=== PATIENT | female | born 1935 | race Caucasian/White ===

== ENCOUNTER 2016-07-18 21:46 | Inpatient (IN) | payer MEDICARE ==
[~2016-07-18] VITALS: Ht 162.6 cm; Wt 101.0 kg
[~2016-07-18 21:46] MED LIST: ASPIRIN 32325 MG/TAB PO; ATROVENT I0.2 MG/1 M IH; AVAPRO TAB150 MG/TAB PO; BUMEX 1MG TA1 MG/TA1 PO; BUMEX2 MG PO; BYSTOLIC5 MG PO; CARDIZEM CD 24240 MG PO; CARDIZEM LA240 MG PO; DIFLUCAN 100MG100 MG PO; DILANTIN 100MG100 MG PO; EFFEXOR XR75 MG/CAP PO; IPRATROPIUM BROM3 M1 IH; LANOXIN 0.120.125 MG PO; LANOXIN 0.25M0.25 MG PO; MICRO-K 1010 MEQ PO; MILLIPRED DP5 MG PO; MULTAQ400 MG PO; NEB; NEURONTIN100 MG/CAP PO; PEPCID 20MG TAB20 MG PO; PRADAXA 150MG150 MG PO; PREDNISONE10 MG PO; PREDNISONE20 MG PO; PRIL40 PO; PROVENTIL0.09 MG/A1 IH; VENTOLIN0.09 MG IH; ZOCOR 10MG10 MG PO
[2016-07-18 22:19] LABS: BASO # 0.1 (0.0-0.2); BASO % 0.4 % (0.0-2.0); EOS # 0.1 (0.0-0.7); EOS % 0.6 % (0-4.0); GRAN % 80.3 % (42.2-75.2); HEMATOCRIT 40.3 % (37.0-47.0); HEMOGLOBIN 12.4 g/dl (12.5-16.0); LYMPH # 1.4 (1.2-3.4); LYMPH % 8.4 % (20.0-51.0); MEAN CELL VOLUME 103 fl (80.0-100.0); MEAN CORPUSCULAR HEMOGLOBIN 32 pg (27.0-31.0); MEAN CORPUSCULAR HGB CONC 31 g/dl (33.0-37.0); MEAN PLATELET VOLUME 10.7 fl (7.4-10.4); MONO # 1.5 (0.1-0.6); PLATELET COUNT 167 K/mm3 (130-400); RED BLOOD COUNT 3.93 M/mm3 (4.10-5.30); REDCELL DISTRIBUTION WIDTH-CV 15.1 % (11.5-14.5); WHITE BLOOD COUNT 16.2 K/mm3 (4.8-10.8)
[2016-07-18 22:20] LABS: ARTERIAL BLD GAS O2 SATURATION 96.9 % (92-100); ARTERIAL BLD GAS TCO2 CT 40.1; ARTERIAL BLOOD GAS BASE EXCESS 7.5 (-2-2); ARTERIAL BLOOD GAS HCO3 37.5 meq/L (22-26); ARTERIAL BLOOD GAS PHT 7.27 C (7.35-7.45); ARTERIAL BLOOD GAS PO2 102.1 mmHg (80-100); ARTERIAL BLOOD GAS PO2T 102.1 (80-100); ARTERIAL BLOOD GAS pH 7.27 (7.35-7.45)
[2016-07-18 22:21] LABS: ALLEN TEST YES; ALLENS TEST RESULT PASS; ATS? YES
[2016-07-18 22:30] LABS: ALBUMIN 4.4 gm/dL (3.5-5.0); BILIRUBIN,TOTAL 0.8 mg/dL (0.0-1.0); CALCIUM 9.3 mg/dL (8.4-10.2); CREATININE, serum 0.91 mg/dL (0.52-1.25); POTASSIUM 4.7 mmol/L (3.4-5.0); TOTAL PROTEIN 8.1 gm/dL (6.4-8.2)
[2016-07-18 22:45] LABS: INR 1.1 (0.8-3.0); PROTHROMBIN TIME 12.3 SECONDS (9.7-12.8); TROPONIN-I 0.069 ng/mL (0.000-0.034)
[2016-07-19] VITALS (1064 sets, daily range): BP systolic 89–135; BP diastolic 40–78; PULSE 63–83; TEMP 96.4–99.4; O2SAT 90–100
[2016-07-19] MEDS ORDERED: LYRICA 75MG CAP75 MG PO (00:13)
[2016-07-19 00:14] LABS: PH 5 (5-8); SQUAMOUS EPITHELIAL 0-2 /hpf; URINE APPEARANCE Hazy; URINE BACTERIA None Seen /hpf; URINE BILIRUBIN Negative (NEGATIVE); URINE BLOOD Negative (NEGATIVE); URINE COLOR Yellow; URINE GLUCOSE Negative (NEGATIVE); URINE KETONE Negative (NEGATIVE); URINE UROBILINOGEN Negative (NEGATIVE); URINE WBC 0-2 /hpf
[2016-07-19 01:09] LABS: ARTERIAL BLD GAS O2 SATURATION 89.8 % (92-100); ARTERIAL BLD GAS TCO2 CT 38.2; ARTERIAL BLOOD GAS BASE EXCESS 8.7 (-2-2); ARTERIAL BLOOD GAS HCO3 36.3 meq/L (22-26); ARTERIAL BLOOD GAS PHT 7.37 C (7.35-7.45); ARTERIAL BLOOD GAS PO2 55.5 mmHg (80-100); ARTERIAL BLOOD GAS PO2T 55.5 (80-100); ARTERIAL BLOOD GAS pH 7.37 (7.35-7.45); OXYHEMOGLOBIN 89.2 %
[2016-07-19 01:10] LABS: ALLEN TEST YES; ALLENS TEST RESULT PASS; ATS? YES
[2016-07-19] MEDS ORDERED: NYSTATIN POWDER15 GM TOP (01:38)
[2016-07-19 05:25] LABS: ALLEN TEST YES; ALLENS TEST RESULT PASS; ARTERIAL BLD GAS O2 SATURATION 97.4 % (92-100); ARTERIAL BLD GAS TCO2 CT 37.5; ARTERIAL BLOOD GAS BASE EXCESS 11.2 (-2-2); ARTERIAL BLOOD GAS PHT 7.49 C (7.35-7.45); ARTERIAL BLOOD GAS PO2 101.1 mmHg (80-100); ARTERIAL BLOOD GAS PO2T 101.1 (80-100); ARTERIAL BLOOD GAS pH 7.49 (7.35-7.45); ATS? YES; OXYHEMOGLOBIN 96.7 %
[2016-07-20] VITALS (948 sets, daily range): BP systolic 95–127; BP diastolic 44–71; PULSE 62–82; TEMP 96.7–98.4; O2SAT 90–99
[2016-07-20 05:03] LABS: ARTERIAL BLD GAS O2 SATURATION 94.6 % (92-100); ARTERIAL BLD GAS TCO2 CT 33.1; ARTERIAL BLOOD GAS BASE EXCESS 5.7 (-2-2); ARTERIAL BLOOD GAS HCO3 31.5 meq/L (22-26); ARTERIAL BLOOD GAS PO2 78.9 mmHg (80-100)
[2016-07-20 05:04] LABS: ALLEN TEST YES; ALLENS TEST RESULT PASS; ATS? YES
[2016-07-20 05:18] LABS: BASO % 0.3 % (0.0-2.0); EOS % 0.4 % (0-4.0); GRAN # 6.7 (1.4-6.5); GRAN % 87.1 % (42.2-75.2); LYMPH # 0.4 (1.2-3.4); LYMPH % 4.8 % (20.0-51.0); MEAN CELL VOLUME 102 fl (80.0-100.0); MEAN CORPUSCULAR HGB CONC 31 g/dl (33.0-37.0); MEAN PLATELET VOLUME 10.9 fl (7.4-10.4); MONO # 0.5 (0.1-0.6); PLATELET COUNT 110 K/mm3 (130-400); RED BLOOD COUNT 3.15 M/mm3 (4.10-5.30); WHITE BLOOD COUNT 7.7 K/mm3 (4.8-10.8)
[2016-07-20 05:20] LABS: MEAN CORPUSCULAR HEMOGLOBIN 32 pg (27.0-31.0)
[2016-07-20 05:33] LABS: ALBUMIN 3.4 gm/dL (3.5-5.0); BILIRUBIN,TOTAL 0.6 mg/dL (0.0-1.0); CALCIUM 8.5 mg/dL (8.4-10.2); CREATININE, serum 0.96 mg/dL (0.52-1.25); MAGNESIUM 1.8 mg/dL (1.6-2.3); PHOSPHOROUS 3.3 mg/dL (2.5-4.5); TOTAL PROTEIN 6.3 gm/dL (6.4-8.2)
[2016-07-21] VITALS (619 sets, daily range): BP systolic 107–135; BP diastolic 55–82; PULSE 63–70; TEMP 97.3–98.4; O2SAT 81–100
[2016-07-21 04:58] LABS: ARTERIAL BLD GAS O2 SATURATION 92.8 % (92-100); ARTERIAL BLD GAS TCO2 CT 30.4; ARTERIAL BLOOD GAS BASE EXCESS 3.5 (-2-2); ARTERIAL BLOOD GAS HCO3 28.9 meq/L (22-26); ARTERIAL BLOOD GAS PO2 68.7 mmHg (80-100)
[2016-07-21 04:59] LABS: ALLEN TEST YES; ALLENS TEST RESULT PASS; ATS? YES
[2016-07-21 06:43] LABS: BASO % 0.3 % (0.0-2.0); EOS % 0.6 % (0-4.0); GRAN # 6.1 (1.4-6.5); GRAN % 84.3 % (42.2-75.2); LYMPH % 6.4 % (20.0-51.0); MEAN CELL VOLUME 101 fl (80.0-100.0); MEAN CORPUSCULAR HGB CONC 31 g/dl (33.0-37.0); MEAN PLATELET VOLUME 11.5 fl (7.4-10.4); MONO # 0.6 (0.1-0.6); PLATELET COUNT 110 K/mm3 (130-400); RED BLOOD COUNT 3.19 M/mm3 (4.10-5.30); REDCELL DISTRIBUTION WIDTH-CV 15.3 % (11.5-14.5); WHITE BLOOD COUNT 7.2 K/mm3 (4.8-10.8)
[2016-07-21 06:48] LABS: HEMATOCRIT 32.3 % (37.0-47.0); HEMOGLOBIN 10.1 g/dl (12.5-16.0); LYMPH # 0.5 (1.2-3.4); MEAN CORPUSCULAR HEMOGLOBIN 32 pg (27.0-31.0)
[2016-07-21 06:50] LABS: ADJUSTED CALCIUM 9.1 mg/dL (8.4-10.2); ALBUMIN 3.3 gm/dL (3.5-5.0); BILIRUBIN,TOTAL 0.5 mg/dL (0.0-1.0); CALCIUM 8.5 mg/dL (8.4-10.2); CREATININE, serum 0.82 mg/dL (0.52-1.25); MAGNESIUM 2.5 mg/dL (1.6-2.3); PHOSPHOROUS 2.8 mg/dL (2.5-4.5); POTASSIUM 4.2 mmol/L (3.4-5.0); TOTAL PROTEIN 6.2 gm/dL (6.4-8.2)
[2016-07-22] VITALS (829 sets, daily range): BP systolic 112–153; BP diastolic 59–83; PULSE 69–103; TEMP 97.2–98; O2SAT 83–100
[2016-07-22 04:49] LABS: ALLEN TEST YES; ALLENS TEST RESULT PASS; ARTERIAL BLD GAS O2 SATURATION 96.5 % (92-100); ARTERIAL BLD GAS TCO2 CT 32.6; ARTERIAL BLOOD GAS BASE EXCESS 4.3 (-2-2); ARTERIAL BLOOD GAS HCO3 30.9 meq/L (22-26); ARTERIAL BLOOD GAS PHT 7.36 C (7.35-7.45); ARTERIAL BLOOD GAS pH 7.36 (7.35-7.45); ATS? YES
[2016-07-22 05:36] LABS: BASO % 0.2 % (0.0-2.0); EOS % 0.2 % (0-4.0); GRAN # 7.3 (1.4-6.5); GRAN % 86.3 % (42.2-75.2); LYMPH # 0.5 (1.2-3.4); LYMPH % 6.2 % (20.0-51.0); MEAN CELL VOLUME 102 fl (80.0-100.0); MEAN CORPUSCULAR HGB CONC 31 g/dl (33.0-37.0); MEAN PLATELET VOLUME 11.8 fl (7.4-10.4); MONO # 0.5 (0.1-0.6); MONO % 6.3 % (1.7-9.3); PLATELET COUNT 124 K/mm3 (130-400); RED BLOOD COUNT 3.37 M/mm3 (4.10-5.30); REDCELL DISTRIBUTION WIDTH-CV 15.4 % (11.5-14.5); WHITE BLOOD COUNT 8.4 K/mm3 (4.8-10.8)
[2016-07-22 05:53] LABS: ADJUSTED CALCIUM 8.9 mg/dL (8.4-10.2); ALBUMIN 3.3 gm/dL (3.5-5.0); BILIRUBIN,TOTAL 0.4 mg/dL (0.0-1.0); CALCIUM 8.3 mg/dL (8.4-10.2); CREATININE, serum 0.77 mg/dL (0.52-1.25); MAGNESIUM 2.5 mg/dL (1.6-2.3); PHOSPHOROUS 3.2 mg/dL (2.5-4.5); POTASSIUM 4.4 mmol/L (3.4-5.0); TOTAL PROTEIN 6.4 gm/dL (6.4-8.2)
[2016-07-22 06:00] LABS: HEMATOCRIT 34.5 % (37.0-47.0); HEMOGLOBIN 10.8 g/dl (12.5-16.0); MEAN CORPUSCULAR HEMOGLOBIN 32 pg (27.0-31.0)
[2016-07-23] VITALS (656 sets, daily range): BP systolic 112–140; BP diastolic 64–76; PULSE 67–83; TEMP 97–98.6; O2SAT 75–100
[2016-07-23 05:01] LABS: ARTERIAL BLD GAS O2 SATURATION 92.9 % (92-100); ARTERIAL BLD GAS TCO2 CT 34.8; ARTERIAL BLOOD GAS BASE EXCESS 5.9 (-2-2); ARTERIAL BLOOD GAS HCO3 32.9 meq/L (22-26); ARTERIAL BLOOD GAS PHT 7.36 C (7.35-7.45); ARTERIAL BLOOD GAS PO2 69.2 mmHg (80-100); ARTERIAL BLOOD GAS PO2T 69.2 (80-100); ARTERIAL BLOOD GAS pH 7.36 (7.35-7.45); OXYHEMOGLOBIN 92.2 %
[2016-07-23 05:06] LABS: ALLEN TEST YES; ALLENS TEST RESULT PASS; ATS? YES
[2016-07-23 05:54] LABS: BASO % 0.2 % (0.0-2.0); EOS % 0.2 % (0-4.0); GRAN # 9.4 (1.4-6.5); GRAN % 87.1 % (42.2-75.2); LYMPH # 0.5 (1.2-3.4); LYMPH % 4.4 % (20.0-51.0); MEAN CELL VOLUME 101 fl (80.0-100.0); MEAN CORPUSCULAR HGB CONC 31 g/dl (33.0-37.0); MEAN PLATELET VOLUME 11.2 fl (7.4-10.4); MONO # 0.8 (0.1-0.6); MONO % 7.3 % (1.7-9.3); PLATELET COUNT 130 K/mm3 (130-400); RED BLOOD COUNT 3.31 M/mm3 (4.10-5.30); REDCELL DISTRIBUTION WIDTH-CV 15.3 % (11.5-14.5); WHITE BLOOD COUNT 10.8 K/mm3 (4.8-10.8)
[2016-07-23 05:57] LABS: HEMATOCRIT 33.5 % (37.0-47.0); HEMOGLOBIN 10.5 g/dl (12.5-16.0); MEAN CORPUSCULAR HEMOGLOBIN 32 pg (27.0-31.0)
[2016-07-23 06:09] LABS: CALCIUM 8.7 mg/dL (8.4-10.2); CREATININE, serum 0.78 mg/dL (0.52-1.25); POTASSIUM 4.5 mmol/L (3.4-5.0)
[2016-07-24 03:34] VITALS: BP 136/70; PULSE 86; TEMP 96.9
[2016-07-24 07:44] LABS: BASO % 0.3 % (0.0-2.0); EOS % 0.1 % (0-4.0); GRAN # 6.2 (1.4-6.5); GRAN % 87.5 % (42.2-75.2); LYMPH # 0.4 (1.2-3.4); LYMPH % 5.9 % (20.0-51.0); MEAN CELL VOLUME 102 fl (80.0-100.0); MEAN CORPUSCULAR HGB CONC 31 g/dl (33.0-37.0); MEAN PLATELET VOLUME 11.1 fl (7.4-10.4); MONO # 0.4 (0.1-0.6); MONO % 5.2 % (1.7-9.3); PLATELET COUNT 125 K/mm3 (130-400); RED BLOOD COUNT 3.24 M/mm3 (4.10-5.30); REDCELL DISTRIBUTION WIDTH-CV 15.1 % (11.5-14.5); WHITE BLOOD COUNT 7.1 K/mm3 (4.8-10.8)
[2016-07-24 07:48] LABS: HEMATOCRIT 32.9 % (37.0-47.0); HEMOGLOBIN 10.2 g/dl (12.5-16.0); MEAN CORPUSCULAR HEMOGLOBIN 31 pg (27.0-31.0)
[2016-07-24 08:18] LABS: CALCIUM 8.8 mg/dL (8.4-10.2); CREATININE, serum 0.73 mg/dL (0.52-1.25); POTASSIUM 4.1 mmol/L (3.4-5.0)
[2016-07-24 11:39] VITALS: BP 123/62; PULSE 75; TEMP 97.8
[2016-07-24 15:34] VITALS: BP 144/77; PULSE 83; TEMP 98.1
[2016-07-24 21:08] VITALS: BP 149/73; PULSE 81; TEMP 97.3
[2016-07-24 23:45] VITALS: BP 120/50; PULSE 89; TEMP 98.1
[2016-07-25 04:44] VITALS: BP 154/74; PULSE 69; TEMP 98.4
[2016-07-25 05:58] LABS: ARTERIAL BLD GAS O2 SATURATION 94.1 % (92-100); ARTERIAL BLD GAS TCO2 CT 37.4; ARTERIAL BLOOD GAS BASE EXCESS 9.1 (-2-2); ARTERIAL BLOOD GAS HCO3 35.6 meq/L (22-26); ARTERIAL BLOOD GAS PO2 74.5 mmHg (80-100); ARTERIAL BLOOD GAS PO2T 74.5 (80-100); OXYHEMOGLOBIN 93.4 %
[2016-07-25 05:59] LABS: ALLEN TEST YES; ALLENS TEST RESULT PASS; ATS? YES
[2016-07-25 07:44] LABS: BASO % 0.3 % (0.0-2.0); EOS % 0.4 % (0-4.0); GRAN # 6.4 (1.4-6.5); GRAN % 85.8 % (42.2-75.2); LYMPH # 0.5 (1.2-3.4); LYMPH % 6.7 % (20.0-51.0); MEAN CELL VOLUME 99 fl (80.0-100.0); MEAN CORPUSCULAR HGB CONC 32 g/dl (33.0-37.0); MONO # 0.4 (0.1-0.6); MONO % 5.7 % (1.7-9.3); PLATELET COUNT 142 K/mm3 (130-400); RED BLOOD COUNT 3.55 M/mm3 (4.10-5.30); REDCELL DISTRIBUTION WIDTH-CV 14.8 % (11.5-14.5); WHITE BLOOD COUNT 7.4 K/mm3 (4.8-10.8)
[2016-07-25 07:46] LABS: HEMATOCRIT 35.1 % (37.0-47.0); HEMOGLOBIN 11.2 g/dl (12.5-16.0); MEAN CORPUSCULAR HEMOGLOBIN 32 pg (27.0-31.0)
[2016-07-25 07:51] VITALS: BP 162/68; PULSE 77; TEMP 98.2
[2016-07-25 08:04] LABS: CALCIUM 9.3 mg/dL (8.4-10.2); CREATININE, serum 0.79 mg/dL (0.52-1.25)
[2016-07-25 12:07] VITALS: BP 165/77; PULSE 84; TEMP 98.4
[2016-07-25 18:03] VITALS: BP 148/84; PULSE 93; TEMP 98.3
[2016-07-25 20:13] VITALS: BP 150/70; PULSE 84; TEMP 97.4
[2016-07-26 00:25] VITALS: BP 157/79; PULSE 72; TEMP 97.6
[2016-07-26 04:17] VITALS: BP 158/69; PULSE 68; TEMP 97.5
[2016-07-26 07:14] LABS: BASO % 0.3 % (0.0-2.0); EOS # 0.1 (0.0-0.7); EOS % 1.7 % (0-4.0); GRAN # 4.7 (1.4-6.5); GRAN % 71.3 % (42.2-75.2); LYMPH % 15.3 % (20.0-51.0); MEAN CELL VOLUME 99 fl (80.0-100.0); MEAN CORPUSCULAR HGB CONC 31 g/dl (33.0-37.0); MEAN PLATELET VOLUME 10.7 fl (7.4-10.4); MONO # 0.7 (0.1-0.6); MONO % 10.3 % (1.7-9.3); PLATELET COUNT 118 K/mm3 (130-400); RED BLOOD COUNT 3.39 M/mm3 (4.10-5.30); WHITE BLOOD COUNT 6.5 K/mm3 (4.8-10.8)
[2016-07-26 07:27] LABS: HEMATOCRIT 33.7 % (37.0-47.0); HEMOGLOBIN 10.5 g/dl (12.5-16.0); MEAN CORPUSCULAR HEMOGLOBIN 31 pg (27.0-31.0)
[2016-07-26 07:29] LABS: CREATININE, serum 0.82 mg/dL (0.52-1.25); POTASSIUM 3.2 mmol/L (3.4-5.0)
[2016-07-26 07:52] VITALS: BP 137/74; PULSE 57; TEMP 97.6
[2016-07-26] MEDS ORDERED: LEVAQUIN 750MG750 M1 PO (09:02)
[2016-07-26] MEDS ORDERED: ELIQUIS 2.5 PO (09:03)
[2016-07-26] MEDS ORDERED: BUMEX 1MG TA1 MG/TA1 PO (09:21)
[2016-07-26] MEDS ORDERED: PULMICORT R1 MG/2 ML IH (09:22)
[2016-07-26] MEDS ORDERED: PREDNISONE20 MG PO (09:23)
[2016-07-26 11:08] VITALS: BP 146/70; PULSE 64; TEMP 97.3
== END 2016-07-26 15:14 | disposition home health service (06) | DRG 163 ==
LOC: COL.ER 21:46 → ICU 23:18 → MEDICAL 23:18
PROVIDERS: Family Medicine; Internal Medicine; Internal Medicine Pulmonary Disease; Nurse Practitioner Family
PROC: 5A1945Z Respiratory Ventilation, 24-96 Consecutive Hours (ICD-10-PCS; principal; 2016-07-19)
PROC: 0B958ZZ Drainage of Right Middle Lobe Bronchus, Via Natural or Artificial Opening Endoscopic (ICD-10-PCS; 2016-07-19)
PROC: 0B968ZZ Drainage of Right Lower Lobe Bronchus, Via Natural or Artificial Opening Endoscopic (ICD-10-PCS; 2016-07-19)
PROC: 0B988ZZ Drainage of Left Upper Lobe Bronchus, Via Natural or Artificial Opening Endoscopic (ICD-10-PCS; 2016-07-19)
PROC: 0B9B8ZZ Drainage of Left Lower Lobe Bronchus, Via Natural or Artificial Opening Endoscopic (ICD-10-PCS; 2016-07-19)
PROC: 0BH17EZ Insertion of Endotracheal Airway into Trachea, Via Natural or Artificial Opening (ICD-10-PCS; 2016-07-19)
PROC: 0B968ZZ Drainage of Right Lower Lobe Bronchus, Via Natural or Artificial Opening Endoscopic (ICD-10-PCS; 2016-07-20)
PROC: 0B9B8ZZ Drainage of Left Lower Lobe Bronchus, Via Natural or Artificial Opening Endoscopic (ICD-10-PCS; 2016-07-20)
PROC: 0B968ZZ Drainage of Right Lower Lobe Bronchus, Via Natural or Artificial Opening Endoscopic (ICD-10-PCS; 2016-07-21)
PROC: 0B9B8ZZ Drainage of Left Lower Lobe Bronchus, Via Natural or Artificial Opening Endoscopic (ICD-10-PCS; 2016-07-21)
PROC: 0B968ZZ Drainage of Right Lower Lobe Bronchus, Via Natural or Artificial Opening Endoscopic (ICD-10-PCS; 2016-07-22)
PROC: 0B9B8ZZ Drainage of Left Lower Lobe Bronchus, Via Natural or Artificial Opening Endoscopic (ICD-10-PCS; 2016-07-22)
DX: J96.01 Acute respiratory failure with hypoxia (principal); J18.9 Pneumonia, unspecified organism; J44.0 Chronic obstructive pulmonary disease with (acute) lower respiratory infection; J96.02 Acute respiratory failure with hypercapnia; I48.0 Paroxysmal atrial fibrillation; I27.2 Other secondary pulmonary hypertension; E87.6 Hypokalemia; D69.6 Thrombocytopenia, unspecified
CPT/HCPCS: 99223-AI; 99232-AI; 99233-AI; 99239; C1751; J0330; J0696; J1644; J1650; J1940; J1956; J2250; J2270; J2405; J2543; J2704; J2920; J3010; J3370; J3475; J7050; J7120; J7512; Q9967

== ENCOUNTER 2016-08-12 09:54 | Inpatient (IN) | payer MEDICARE ==
[2016-08-12] VITALS (388 sets, daily range): BP systolic 143–148; BP diastolic 76–86; PULSE 85–100; TEMP 97.8–98.2; O2SAT 90–99
[~2016-08-12] VITALS: Ht 162.6 cm; Wt 93.6 kg
[~2016-08-12 09:54] MED LIST changes: +ELIQUIS 2.5 PO; +LEVAQUIN 750MG750 M1 PO; +LYRICA 75MG CAP75 MG PO; +NYSTATIN POWDER15 GM TOP; +PULMICORT R1 MG/2 ML IH
[2016-08-12 10:55] LABS: BASO % 0.3 % (0.0-2.0); EOS # 0.2 (0.0-0.7); EOS % 2.5 % (0-4.0); GRAN # 6.3 (1.4-6.5); GRAN % 82.6 % (42.2-75.2); HEMATOCRIT 42.6 % (37.0-47.0); HEMOGLOBIN 13.6 g/dl (12.5-16.0); LYMPH # 0.6 (1.2-3.4); LYMPH % 8.4 % (20.0-51.0); MEAN CELL VOLUME 98 fl (80.0-100.0); MEAN CORPUSCULAR HEMOGLOBIN 31 pg (27.0-31.0); MEAN CORPUSCULAR HGB CONC 32 g/dl (33.0-37.0); MEAN PLATELET VOLUME 10.4 fl (7.4-10.4); MONO # 0.5 (0.1-0.6); MONO % 5.9 % (1.7-9.3); PLATELET COUNT 141 K/mm3 (130-400); RED BLOOD COUNT 4.34 M/mm3 (4.10-5.30); REDCELL DISTRIBUTION WIDTH-CV 13.3 % (11.5-14.5); WHITE BLOOD COUNT 7.6 K/mm3 (4.8-10.8)
[2016-08-12 11:09] LABS: ADJUSTED CALCIUM 9.4 mg/dL (8.4-10.2); ALBUMIN 4.2 gm/dL (3.5-5.0); BILIRUBIN,TOTAL 0.7 mg/dL (0.0-1.0); CALCIUM 9.6 mg/dL (8.4-10.2); CREATININE, serum 0.76 mg/dL (0.52-1.25); TOTAL PROTEIN 7.7 gm/dL (6.4-8.2)
[2016-08-12 11:19] LABS: TROPONIN-I 0.017 ng/mL (0.000-0.034)
[2016-08-12 11:19] LABS: ARTERIAL BLD GAS O2 SATURATION 92.3 % (92-100); ARTERIAL BLD GAS TCO2 CT 40.3; ARTERIAL BLOOD GAS PHT 7.33 C (7.35-7.45); ARTERIAL BLOOD GAS PO2 68.8 mmHg (80-100); ARTERIAL BLOOD GAS PO2T 68.8 (80-100); ARTERIAL BLOOD GAS pH 7.33 (7.35-7.45); OXYHEMOGLOBIN 91.5 %
[2016-08-12 11:20] LABS: ATS? YES
[2016-08-12 11:20] LABS: INR 1.1 (0.8-3.0); PROTHROMBIN TIME 12.2 SECONDS (9.7-12.8)
[2016-08-12 11:21] LABS: ALLEN TEST YES; ALLENS TEST RESULT PASS
[2016-08-12 14:27] LABS: ARTERIAL BLD GAS O2 SATURATION 94.2 % (92-100); ARTERIAL BLD GAS TCO2 CT 38.5; ARTERIAL BLOOD GAS BASE EXCESS 8.7 (-2-2); ARTERIAL BLOOD GAS HCO3 36.5 meq/L (22-26); ARTERIAL BLOOD GAS PHT 7.37 C (7.35-7.45); ARTERIAL BLOOD GAS PO2 76.6 mmHg (80-100); ARTERIAL BLOOD GAS PO2T 76.6 (80-100); ARTERIAL BLOOD GAS pH 7.37 (7.35-7.45); OXYHEMOGLOBIN 93.3 %
[2016-08-12 14:28] LABS: ATS? YES
[2016-08-12 16:25] LABS: INFLUENZA B NEGATIVE
[2016-08-13] VITALS (328 sets, daily range): BP systolic 135–151; BP diastolic 65–82; PULSE 79–103; TEMP 95.8–98.2; O2SAT 83–99
[2016-08-13 05:26] LABS: BASO % 0.2 % (0.0-2.0); GRAN # 5.6 (1.4-6.5); GRAN % 87.7 % (42.2-75.2); LYMPH # 0.5 (1.2-3.4); LYMPH % 8.4 % (20.0-51.0); MEAN CELL VOLUME 97 fl (80.0-100.0); MEAN CORPUSCULAR HGB CONC 33 g/dl (33.0-37.0); MEAN PLATELET VOLUME 10.3 fl (7.4-10.4); MONO # 0.2 (0.1-0.6); MONO % 3.4 % (1.7-9.3); PLATELET COUNT 132 K/mm3 (130-400); RED BLOOD COUNT 3.75 M/mm3 (4.10-5.30); REDCELL DISTRIBUTION WIDTH-CV 13.3 % (11.5-14.5); WHITE BLOOD COUNT 6.4 K/mm3 (4.8-10.8)
[2016-08-13 05:35] LABS: CALCIUM 9.1 mg/dL (8.4-10.2); CREATININE, serum 0.74 mg/dL (0.52-1.25); MAGNESIUM 1.8 mg/dL (1.6-2.3); PHOSPHOROUS 3.4 mg/dL (2.5-4.5)
[2016-08-13 05:53] LABS: HEMOGLOBIN 11.8 g/dl (12.5-16.0); MEAN CORPUSCULAR HEMOGLOBIN 31 pg (27.0-31.0)
[2016-08-13 05:54] LABS: HEMATOCRIT 36.3 % (37.0-47.0)
[2016-08-13 07:47] LABS: INR 1.2 (0.8-3.0); PROTHROMBIN TIME 13.6 SECONDS (9.7-12.8)
[2016-08-13 13:30] LABS: ARTERIAL BLD GAS O2 SATURATION 94.2 % (92-100); ARTERIAL BLD GAS TCO2 CT 33.7; ARTERIAL BLOOD GAS BASE EXCESS 5.9 (-2-2); ARTERIAL BLOOD GAS HCO3 32.1 meq/L (22-26); OXYHEMOGLOBIN 93.6 %
[2016-08-13 13:31] LABS: ALLEN TEST YES; ALLENS TEST RESULT PASS; ATS? YES
[2016-08-14] VITALS (7 sets, daily range): BP systolic 129–162; BP diastolic 68–86; PULSE 70–110; TEMP 97.4–97.9
[2016-08-15 03:35] VITALS: BP 119/68; PULSE 85; TEMP 97
[2016-08-15 07:21] LABS: ALBUMIN 3.7 gm/dL (3.5-5.0); BILIRUBIN,TOTAL 0.6 mg/dL (0.0-1.0); CALCIUM 8.8 mg/dL (8.4-10.2); CREATININE, serum 0.67 mg/dL (0.52-1.25); POTASSIUM 3.7 mmol/L (3.4-5.0); TOTAL PROTEIN 6.6 gm/dL (6.4-8.2)
[2016-08-15 08:36] VITALS: BP 155/78; PULSE 85; TEMP 97.4
[2016-08-15 10:54] VITALS: BP 151/60; PULSE 103; TEMP 97.6
[2016-08-15 14:32] VITALS: BP 131/57; PULSE 94; TEMP 97.9
[2016-08-15 19:30] VITALS: BP 160/67; PULSE 95; TEMP 97.7
[2016-08-15 23:54] VITALS: BP 124/67; PULSE 93; TEMP 98.2
[2016-08-16 03:25] VITALS: BP 155/70; PULSE 91; TEMP 97.4
[2016-08-16 08:59] VITALS: BP 169/91; PULSE 96; TEMP 97.6
[2016-08-16 12:02] LABS: ADJUSTED CALCIUM 9.3 mg/dL (8.4-10.2); ALBUMIN 4.2 gm/dL (3.5-5.0); BILIRUBIN,TOTAL 0.7 mg/dL (0.0-1.0); CALCIUM 9.5 mg/dL (8.4-10.2); CREATININE, serum 0.69 mg/dL (0.52-1.25); POTASSIUM 3.7 mmol/L (3.4-5.0); TOTAL PROTEIN 7.4 gm/dL (6.4-8.2)
[2016-08-16 12:26] VITALS: BP 163/96; PULSE 109; TEMP 98.1
[2016-08-16] MEDS ORDERED: ELIQUIS 5MG PO (13:54)
[2016-08-16] MEDS ORDERED: CARDIZEM CD 24240 MG PO (13:54)
[2016-08-16] MEDS ORDERED: DALIRESP500 MCG PO (13:55)
[2016-08-16] MEDS ORDERED: BUMEX2 MG PO (13:58)
[2016-08-16] MEDS ORDERED: MONODOX100 PO (14:31)
[2016-08-16] MEDS ORDERED: PREDNISONE20 MG PO (14:31)
== END 2016-08-16 15:53 | disposition home or self-care (01) | DRG 189 ==
LOC: COL.ER 09:54 → IMCU 12:13 → MEDICAL 12:13
PROVIDERS: Emergency Medicine; Family Medicine; Internal Medicine Pulmonary Disease
PROC: 02HV33Z Insertion of Infusion Device into Superior Vena Cava, Percutaneous Approach (ICD-10-PCS; principal; 2016-08-12)
DX: J96.22 Acute and chronic respiratory failure with hypercapnia (principal); J44.1 Chronic obstructive pulmonary disease with (acute) exacerbation; E87.3 Alkalosis; I50.32 Chronic diastolic (congestive) heart failure; J96.21 Acute and chronic respiratory failure with hypoxia; I48.0 Paroxysmal atrial fibrillation; I11.0 Hypertensive heart disease with heart failure; I27.2 Other secondary pulmonary hypertension; Z87.891 Personal history of nicotine dependence
CPT/HCPCS: A9284; C1751; C1894; J0692; J1644; J1940; J1956; J2920; J2930; J7030

== ENCOUNTER → 2016-12-13 | Outpatient (CLI) | payer MEDICARE ==
[~2016-12-13] MED LIST changes: +CORDARONE200 MG/TAB PO; +DALIRESP500 MCG PO; +ELIQUIS 5MG PO; +MONODOX100 PO; +NORCO 325 MG-51 TAB PO
== END ==
LOC: MC.RAD 08:47
DX: Z12.31 Encounter for screening mammogram for malignant neoplasm of breast (principal)

== ENCOUNTER 2017-03-08 06:50 | Inpatient (IN) | payer MEDICARE ==
[2017-03-08] VITALS (692 sets, daily range): BP systolic 93–112; BP diastolic 44–67; PULSE 81–98; TEMP 96.9–97.9; O2SAT 84–100
[~2017-03-08] VITALS: Ht 162.6 cm; Wt 88.4 kg
[~2017-03-08 06:50] MED LIST changes: -CORDARONE200 MG/TAB PO; -NORCO 325 MG-51 TAB PO
[2017-03-08 07:23] LABS: BASO # 0.1 (0.0-0.2); BASO % 0.5 % (0.0-2.0); EOS # 0.1 (0.0-0.7); EOS % 1.3 % (0-4.0); GRAN # 7.9 (1.4-6.5); GRAN % 78.6 % (42.2-75.2); LYMPH # 0.5 (1.2-3.4); LYMPH % 5.4 % (20.0-51.0); MEAN CELL VOLUME 82 fl (80.0-100.0); MEAN CORPUSCULAR HGB CONC 28 g/dl (33.0-37.0); MEAN PLATELET VOLUME 10.5 fl (7.4-10.4); MONO # 1.3 (0.1-0.6); MONO % 13.3 % (1.7-9.3); PLATELET COUNT 324 K/mm3 (130-400); RED BLOOD COUNT 3.13 M/mm3 (4.10-5.30); REDCELL DISTRIBUTION WIDTH-CV 16.1 % (11.5-14.5)
[2017-03-08 07:25] LABS: ARTERIAL BLD GAS O2 SATURATION 95.3 % (92-100); ARTERIAL BLD GAS TCO2 CT 42.2; ARTERIAL BLOOD GAS BASE EXCESS 14.1 (-2-2); ARTERIAL BLOOD GAS HCO3 40.3 meq/L (22-26); ARTERIAL BLOOD GAS PHT 7.42 C (7.35-7.45); ARTERIAL BLOOD GAS PO2 84.9 mmHg (80-100); ARTERIAL BLOOD GAS PO2T 84.9 (80-100); ARTERIAL BLOOD GAS pH 7.42 (7.35-7.45); OXYHEMOGLOBIN 93.1 %
[2017-03-08 07:26] LABS: ALLEN TEST YES; ALLENS TEST RESULT PASS; ATS? YES
[2017-03-08 07:29] LABS: INR 1.6 (0.8-3.0); PROTHROMBIN TIME 17.6 SECONDS (9.7-12.8)
[2017-03-08 07:30] LABS: HEMATOCRIT 25.8 % (37.0-47.0); HEMOGLOBIN 7.3 g/dl (12.5-16.0); MEAN CORPUSCULAR HEMOGLOBIN 23 pg (27.0-31.0)
[2017-03-08 07:31] LABS: PARTIAL THROMBOPLASTIN TIME 26.8 SECONDS (26.0-37.0)
[2017-03-08 07:39] LABS: ADJUSTED CALCIUM 8.8 mg/dL (8.4-10.2); ALBUMIN 3.7 gm/dL (3.5-5.0); BILIRUBIN,TOTAL 1.3 mg/dL (0.0-1.0); C-REACTIVE PROTEIN 5.9 mg/dL (0.0-0.9); CALCIUM 8.6 mg/dL (8.4-10.2); CREATININE, serum 1.13 mg/dL (0.52-1.25); POTASSIUM 4.6 mmol/L (3.4-5.0); TOTAL PROTEIN 7.3 gm/dL (6.4-8.2)
[2017-03-08 07:54] LABS: TROPONIN-I 0.159 ng/mL (0.000-0.034)
[2017-03-08 08:17] LABS: PH 5 (5-8); SQUAMOUS EPITHELIAL None Seen /hpf; URINE APPEARANCE Clear; URINE BACTERIA Rare /hpf; URINE BILIRUBIN Negative (NEGATIVE); URINE BLOOD Negative (NEGATIVE); URINE COLOR Yellow; URINE GLUCOSE Negative (NEGATIVE); URINE KETONE Negative (NEGATIVE); URINE RBC 0-2 /hpf; URINE WBC 0-2 /hpf
[2017-03-08] MEDS ORDERED: DALIRESP500 MCG PO (09:57)
[2017-03-08] MEDS ORDERED: CORDARONE200 MG/TAB PO (09:58)
[2017-03-08] MEDS ORDERED: NORCO 325 MG-51 TAB PO (10:56)
[2017-03-08 15:39] LABS: MEAN CELL VOLUME 83 fl (80.0-100.0); MEAN CORPUSCULAR HGB CONC 30 g/dl (33.0-37.0); MEAN PLATELET VOLUME 9.6 fl (7.4-10.4); PLATELET COUNT 236 K/mm3 (130-400); RED BLOOD COUNT 2.76 M/mm3 (4.10-5.30)
[2017-03-08 15:42] LABS: HEMOGLOBIN 6.9 g/dl (12.5-16.0); MEAN CORPUSCULAR HEMOGLOBIN 25 pg (27.0-31.0)
[2017-03-08 15:48] LABS: CALCIUM 7.3 mg/dL (8.4-10.2); CREATININE, serum 1.02 mg/dL (0.52-1.25); POTASSIUM 3.5 mmol/L (3.4-5.0)
[2017-03-08 16:12] LABS: TROPONIN-I 0.111 ng/mL (0.000-0.034)
[2017-03-09] VITALS (717 sets, daily range): BP systolic 88–117; BP diastolic 37–68; PULSE 81–104; TEMP 96.9–98.6; O2SAT 80–100
[2017-03-09 06:44] LABS: MEAN CELL VOLUME 84 fl (80.0-100.0); MEAN CORPUSCULAR HGB CONC 30 g/dl (33.0-37.0); MEAN PLATELET VOLUME 9.9 fl (7.4-10.4); PLATELET COUNT 248 K/mm3 (130-400); REDCELL DISTRIBUTION WIDTH-CV 15.5 % (11.5-14.5); WHITE BLOOD COUNT 9.3 K/mm3 (4.8-10.8)
[2017-03-09 06:58] LABS: HEMATOCRIT 30.4 % (37.0-47.0); HEMOGLOBIN 9.2 g/dl (12.5-16.0); MEAN CORPUSCULAR HEMOGLOBIN 26 pg (27.0-31.0)
[2017-03-09 07:15] LABS: CREATININE, serum 1.02 mg/dL (0.52-1.25); POTASSIUM 3.6 mmol/L (3.4-5.0)
[2017-03-09 13:43] LABS: CALCIUM 8.1 mg/dL (8.4-10.2); CREATININE, serum 0.98 mg/dL (0.52-1.25); POTASSIUM 3.5 mmol/L (3.4-5.0)
[2017-03-10 03:10] VITALS: BP 107/51; PULSE 102; TEMP 98.2
[2017-03-10 08:24] VITALS: BP 96/52; PULSE 97; TEMP 97.9
[2017-03-10 08:53] LABS: BASO % 0.4 % (0.0-2.0); EOS # 0.2 (0.0-0.7); EOS % 3.4 % (0-4.0); GRAN # 5.5 (1.4-6.5); GRAN % 80.1 % (42.2-75.2); LYMPH # 0.2 (1.2-3.4); LYMPH % 3.2 % (20.0-51.0); MEAN CELL VOLUME 86 fl (80.0-100.0); MEAN CORPUSCULAR HGB CONC 30 g/dl (33.0-37.0); MONO # 0.9 (0.1-0.6); MONO % 12.5 % (1.7-9.3); PLATELET COUNT 215 K/mm3 (130-400); RED BLOOD COUNT 3.44 M/mm3 (4.10-5.30); REDCELL DISTRIBUTION WIDTH-CV 16.3 % (11.5-14.5); WHITE BLOOD COUNT 6.8 K/mm3 (4.8-10.8)
[2017-03-10 09:02] LABS: HEMATOCRIT 29.5 % (37.0-47.0); HEMOGLOBIN 8.7 g/dl (12.5-16.0); MEAN CORPUSCULAR HEMOGLOBIN 25 pg (27.0-31.0)
[2017-03-10 09:10] LABS: ADJUSTED CALCIUM 8.9 mg/dL (8.4-10.2); BILIRUBIN,TOTAL 0.9 mg/dL (0.0-1.0); CALCIUM 8.1 mg/dL (8.4-10.2); CREATININE, serum 0.99 mg/dL (0.52-1.25); POTASSIUM 3.6 mmol/L (3.4-5.0)
[2017-03-10 12:06] LABS: ARTERIAL BLD GAS O2 SATURATION 94.5 % (92-100); ARTERIAL BLD GAS TCO2 CT 43.7; ARTERIAL BLOOD GAS BASE EXCESS 15.4 (-2-2); ARTERIAL BLOOD GAS HCO3 41.8 meq/L (22-26); ARTERIAL BLOOD GAS PHT 7.44 C (7.35-7.45); ARTERIAL BLOOD GAS PO2 73.2 mmHg (80-100); ARTERIAL BLOOD GAS PO2T 73.2 (80-100); ARTERIAL BLOOD GAS pH 7.44 (7.35-7.45); ATS? YES; OXYHEMOGLOBIN 93.4 %
[2017-03-10 12:37] LABS: RETIC % 3.5 % (0.5-3.52)
[2017-03-10 12:41] LABS: LACTATE DEHYDROGENASE 718 U/L (313-618)
[2017-03-10 12:47] LABS: TOTAL IRON BINDING CAPACITY 342 ug/dL (265-497)
[2017-03-10 12:53] VITALS: BP 109/53; PULSE 98; TEMP 97.8
[2017-03-10 12:56] LABS: B-TYPE NATRIURETIC PEPTIDE 3020 pg/mL (0-450)
[2017-03-10 16:00] VITALS: BP 97/50; PULSE 105; TEMP 97.7
[2017-03-10 20:19] VITALS: BP 143/46; PULSE 107; TEMP 98.6
[2017-03-10 22:47] VITALS: BP 118/65; PULSE 95; TEMP 98.6
[2017-03-11] VITALS (7 sets, daily range): BP systolic 98–119; BP diastolic 47–70; PULSE 76–98; TEMP 97.8–98.8
[2017-03-11 07:55] LABS: BASO % 0.4 % (0.0-2.0); EOS # 0.3 (0.0-0.7); EOS % 4.2 % (0-4.0); GRAN # 5.7 (1.4-6.5); GRAN % 81.5 % (42.2-75.2); LYMPH # 0.2 (1.2-3.4); LYMPH % 2.7 % (20.0-51.0); MEAN CELL VOLUME 87 fl (80.0-100.0); MEAN CORPUSCULAR HGB CONC 29 g/dl (33.0-37.0); MEAN PLATELET VOLUME 10.3 fl (7.4-10.4); MONO # 0.8 (0.1-0.6); MONO % 10.8 % (1.7-9.3); PLATELET COUNT 204 K/mm3 (130-400); RED BLOOD COUNT 3.52 M/mm3 (4.10-5.30); REDCELL DISTRIBUTION WIDTH-CV 16.6 % (11.5-14.5); WHITE BLOOD COUNT 6.9 K/mm3 (4.8-10.8)
[2017-03-11 07:57] LABS: HEMATOCRIT 30.6 % (37.0-47.0); HEMOGLOBIN 8.8 g/dl (12.5-16.0); MEAN CORPUSCULAR HEMOGLOBIN 25 pg (27.0-31.0)
[2017-03-11 08:06] LABS: ADJUSTED CALCIUM 9.2 mg/dL (8.4-10.2); ALBUMIN 2.9 gm/dL (3.5-5.0); BILIRUBIN,TOTAL 0.8 mg/dL (0.0-1.0); CALCIUM 8.3 mg/dL (8.4-10.2); CREATININE, serum 1.01 mg/dL (0.52-1.25); MAGNESIUM 2.1 mg/dL (1.6-2.3); POTASSIUM 4.1 mmol/L (3.4-5.0)
[2017-03-12 03:06] VITALS: BP 105/50; PULSE 88; TEMP 97.8
[2017-03-12 05:18] LABS: ARTERIAL BLD GAS O2 SATURATION 93.8 % (92-100); ARTERIAL BLD GAS TCO2 CT 43.2; ARTERIAL BLOOD GAS BASE EXCESS 15.4 (-2-2); ARTERIAL BLOOD GAS HCO3 41.4 meq/L (22-26); ARTERIAL BLOOD GAS PHT 7.46 C (7.35-7.45); ARTERIAL BLOOD GAS PO2 70.8 mmHg (80-100); ARTERIAL BLOOD GAS PO2T 70.8 (80-100); ARTERIAL BLOOD GAS pH 7.46 (7.35-7.45); OXYHEMOGLOBIN 92.8 %
[2017-03-12 05:19] LABS: ALLEN TEST YES; ALLENS TEST RESULT PASS; ATS? YES
[2017-03-12 08:37] VITALS: BP 93/43; PULSE 58; TEMP 97.9
[2017-03-12 13:46] VITALS: BP 100/52; PULSE 102; TEMP 97.8
[2017-03-12 15:49] VITALS: BP 115/61; PULSE 102; TEMP 97.6
[2017-03-12 19:30] VITALS: BP 148/63; PULSE 101; TEMP 98.8
[2017-03-12 22:55] VITALS: BP 143/76; PULSE 97; TEMP 98.3
[2017-03-13 03:48] VITALS: BP 144/68; PULSE 88; TEMP 98.5
[2017-03-13 07:55] VITALS: BP 135/64; PULSE 96; TEMP 98.4
[2017-03-13 11:10] VITALS: BP 115/66; PULSE 110; TEMP 97.9
[2017-03-13 14:07] LABS: BASO % 0.5 % (0.0-2.0); EOS # 0.3 (0.0-0.7); EOS % 3.8 % (0-4.0); GRAN # 5.4 (1.4-6.5); GRAN % 82.3 % (42.2-75.2); LYMPH # 0.2 (1.2-3.4); LYMPH % 3.1 % (20.0-51.0); MEAN CELL VOLUME 88 fl (80.0-100.0); MEAN CORPUSCULAR HGB CONC 28 g/dl (33.0-37.0); MEAN PLATELET VOLUME 10.3 fl (7.4-10.4); MONO # 0.6 (0.1-0.6); MONO % 9.8 % (1.7-9.3); PLATELET COUNT 222 K/mm3 (130-400); RED BLOOD COUNT 3.74 M/mm3 (4.10-5.30); REDCELL DISTRIBUTION WIDTH-CV 17.2 % (11.5-14.5); WHITE BLOOD COUNT 6.5 K/mm3 (4.8-10.8)
[2017-03-13 14:09] LABS: HEMATOCRIT 32.9 % (37.0-47.0); HEMOGLOBIN 9.3 g/dl (12.5-16.0); MEAN CORPUSCULAR HEMOGLOBIN 25 pg (27.0-31.0)
[2017-03-13 14:21] LABS: CALCIUM 8.8 mg/dL (8.4-10.2); CREATININE, serum 1.21 mg/dL (0.52-1.25); POTASSIUM 4.8 mmol/L (3.4-5.0)
[2017-03-13 15:23] VITALS: BP 117/60; PULSE 96; TEMP 97.6
[2017-03-13 19:45] VITALS: BP 102/43; PULSE 92; TEMP 97.9
[2017-03-13 23:14] VITALS: BP 104/54; PULSE 94; TEMP 98.2
[2017-03-14 03:41] VITALS: BP 100/51; PULSE 94; TEMP 97.8
[2017-03-14 07:11] LABS: BASO # 0.1 (0.0-0.2); BASO % 0.8 % (0.0-2.0); EOS # 0.4 (0.0-0.7); EOS % 4.9 % (0-4.0); GRAN # 5.6 (1.4-6.5); GRAN % 75.8 % (42.2-75.2); LYMPH # 0.4 (1.2-3.4); LYMPH % 5.2 % (20.0-51.0); MEAN CELL VOLUME 86 fl (80.0-100.0); MEAN CORPUSCULAR HGB CONC 29 g/dl (33.0-37.0); MEAN PLATELET VOLUME 10.4 fl (7.4-10.4); MONO # 0.9 (0.1-0.6); MONO % 12.8 % (1.7-9.3); PLATELET COUNT 239 K/mm3 (130-400); RED BLOOD COUNT 3.72 M/mm3 (4.10-5.30); REDCELL DISTRIBUTION WIDTH-CV 17.4 % (11.5-14.5); WHITE BLOOD COUNT 7.3 K/mm3 (4.8-10.8)
[2017-03-14 07:14] LABS: HEMATOCRIT 31.9 % (37.0-47.0); HEMOGLOBIN 9.3 g/dl (12.5-16.0); MEAN CORPUSCULAR HEMOGLOBIN 25 pg (27.0-31.0)
[2017-03-14 07:21] LABS: CALCIUM 8.8 mg/dL (8.4-10.2); CREATININE, serum 1.24 mg/dL (0.52-1.25); POTASSIUM 4.7 mmol/L (3.4-5.0)
[2017-03-14 08:26] VITALS: BP 110/56; PULSE 99; TEMP 98
[2017-03-14 11:29] VITALS: BP 101/51; PULSE 84; TEMP 97.5
[2017-03-14 16:49] VITALS: BP 107/53; PULSE 81; TEMP 98.4
[2017-03-14 19:52] VITALS: BP 97/44; PULSE 86; TEMP 97.8
[2017-03-14 23:32] VITALS: BP 100/50; PULSE 104; TEMP 97.8
[2017-03-15] VITALS (10 sets, daily range): BP systolic 88–117; BP diastolic 38–65; PULSE 88–110; TEMP 97.7–98.9
[2017-03-15 08:51] LABS: CALCIUM 8.5 mg/dL (8.4-10.2); CREATININE, serum 1.18 mg/dL (0.52-1.25); POTASSIUM 4.2 mmol/L (3.4-5.0)
[2017-03-16 03:46] VITALS: BP 117/41; PULSE 79; TEMP 100.2
[2017-03-16 07:51] VITALS: BP 113/55; PULSE 92; TEMP 98.4
[2017-03-16 08:09] LABS: BASO % 0.5 % (0.0-2.0); EOS # 0.2 (0.0-0.7); EOS % 4.8 % (0-4.0); GRAN # 2.8 (1.4-6.5); GRAN % 71.8 % (42.2-75.2); LYMPH # 0.3 (1.2-3.4); LYMPH % 7.1 % (20.0-51.0); MEAN CELL VOLUME 84 fl (80.0-100.0); MEAN CORPUSCULAR HGB CONC 30 g/dl (33.0-37.0); MONO # 0.6 (0.1-0.6); MONO % 15.3 % (1.7-9.3); PLATELET COUNT 211 K/mm3 (130-400); RED BLOOD COUNT 3.53 M/mm3 (4.10-5.30); REDCELL DISTRIBUTION WIDTH-CV 17.5 % (11.5-14.5); WHITE BLOOD COUNT 3.9 K/mm3 (4.8-10.8)
[2017-03-16 08:22] LABS: CALCIUM 8.6 mg/dL (8.4-10.2); CREATININE, serum 1.14 mg/dL (0.52-1.25); POTASSIUM 3.7 mmol/L (3.4-5.0)
[2017-03-16 08:30] LABS: HEMATOCRIT 29.5 % (37.0-47.0); HEMOGLOBIN 8.8 g/dl (12.5-16.0); MEAN CORPUSCULAR HEMOGLOBIN 25 pg (27.0-31.0)
[2017-03-16] MEDS ORDERED: FERROUS GL325 MG/TAB PO (09:45)
[2017-03-16] MEDS ORDERED: TOPROL XL 25MG25 MG PO (09:46)
[2017-03-16 12:05] VITALS: BP 110/49; PULSE 95; TEMP 98.3
[2017-03-16] MEDS ORDERED: DIFLUCAN200 MG PO (15:03)
[2017-03-16 15:38] VITALS: BP 144/53; PULSE 51; TEMP 97.6
[2017-03-16] MEDS ORDERED: ELIQUIS 2.5 PO (16:26)
== END 2017-03-16 17:30 | disposition home health service (06) | DRG 190 ==
LOC: COL.ER 06:50 → ICU 10:14 → MEDICAL 10:14 → ICU 10:51 → MEDICAL 03-09 16:04
PROVIDERS: Emergency Medicine; Internal Medicine Cardiovascular Disease; Internal Medicine Critical Care Medicine; Internal Medicine Gastroenterology; Nurse Practitioner; Nurse Practitioner Family; Physician Assistant
PROC: 0DJ08ZZ Inspection of Upper Intestinal Tract, Via Natural or Artificial Opening Endoscopic (ICD-10-PCS; 2017-03-15)
PROC: 0DBK8ZX Excision of Ascending Colon, Via Natural or Artificial Opening Endoscopic, Diagnostic (ICD-10-PCS; principal; 2017-03-15 14:00)
PROC: 0DBH8ZX Excision of Cecum, Via Natural or Artificial Opening Endoscopic, Diagnostic (ICD-10-PCS; 2017-03-15 14:00)
DX: J44.1 Chronic obstructive pulmonary disease with (acute) exacerbation (principal); J96.21 Acute and chronic respiratory failure with hypoxia; I21.4 Non-ST elevation (NSTEMI) myocardial infarction; I26.09 Other pulmonary embolism with acute cor pulmonale; I50.33 Acute on chronic diastolic (congestive) heart failure; E87.1 Hypo-osmolality and hyponatremia; B37.81 Candidal esophagitis; D32.0 Benign neoplasm of cerebral meninges; I11.0 Hypertensive heart disease with heart failure; D50.9 Iron deficiency anemia, unspecified; I48.2 Chronic atrial fibrillation; Z87.891 Personal history of nicotine dependence; Z79.01 Long term (current) use of anticoagulants; E87.6 Hypokalemia; M54.5 Low back pain; W18.30XA Fall on same level, unspecified, initial encounter; I08.1 Rheumatic disorders of both mitral and tricuspid valves; G40.909 Epilepsy, unspecified, not intractable, without status epilepticus; D12.6 Benign neoplasm of colon, unspecified
CPT/HCPCS: 99223-AI; 99232-AI; 99233-AI; 99239; A9585; C1751; C9113; J0692; J1170; J1644; J1650; J1885; J1940; J2060; J2250; J2310; J2930; J3370; J7030; J7040; J7050; P9016; Q9967

== ENCOUNTER → 2017-07-06 | Outpatient (CLI) | payer MEDICARE ==
[~2017-07-06] MED LIST changes: +CORDARONE200 MG/TAB PO; +DIFLUCAN200 MG PO; +FERROUS GL325 MG/TAB PO; +NORCO 325 MG-51 TAB PO; +TOPROL XL 25MG25 MG PO
== END ==
LOC: COL.RAD 13:13
DX: S22.069A Unspecified fracture of T7-T8 vertebra, initial encounter for closed fracture (principal); I31.3 Pericardial effusion (noninflammatory); K76.89 Other specified diseases of liver; J43.9 Emphysema, unspecified
CPT/HCPCS: Q9967

== ENCOUNTER → 2017-11-23 | Outpatient (CLI) | payer MEDICARE | LOC: COL.RAD 14:37 | DX: Z01.812 Encounter for preprocedural laboratory examination (principal); I70.0 Atherosclerosis of aorta; K55.1 Chronic vascular disorders of intestine; I70.8 Atherosclerosis of other arteries; I70.203 Unspecified atherosclerosis of native arteries of extremities, bilateral legs; K76.89 Other specified diseases of liver; N28.1 Cyst of kidney, acquired; I70.1 Atherosclerosis of renal artery; J98.4 Other disorders of lung; K57.30 Diverticulosis of large intestine without perforation or abscess without bleeding; Z90.710 Acquired absence of both cervix and uterus; I48.0 Paroxysmal atrial fibrillation; I73.9 Peripheral vascular disease, unspecified | CPT/HCPCS: Q9967 ==

== ENCOUNTER → 2018-07-30 | Outpatient (CLI) | payer MEDICARE ==
[2018-07-30 11:04] LABS: ALBUMIN 3.9 gm/dL (3.5-5.0); BILIRUBIN,TOTAL 0.4 mg/dL (0.0-1.0); CALCIUM 9.2 mg/dL (8.4-10.2); CREATININE, serum 1.12 mg/dL (0.52-1.25); POTASSIUM 3.9 mmol/L (3.4-5.0); TOTAL PROTEIN 7.1 gm/dL (6.4-8.2)
== END ==
LOC: COL.LAB 10:20
PROVIDERS: Family Medicine
DX: I50.42 Chronic combined systolic (congestive) and diastolic (congestive) heart failure (principal)

== ENCOUNTER 2018-12-14 14:10 | Emergency (ER) | payer MEDICARE ==
[~2018-12-14] VITALS: Ht 170.2 cm; Wt 102.3 kg
[2018-12-14 14:13] VITALS: TEMP 98
[2018-12-14 14:37] LABS: BASO % 0.3 % (0.0-2.0); EOS # 0.1 (0.0-0.7); EOS % 2.1 % (0-4.0); GRAN # 5.1 (1.4-6.5); GRAN % 82.3 % (42.2-75.2); HEMATOCRIT 44.1 % (37.0-47.0); HEMOGLOBIN 13.1 g/dl (12.5-16.0); LYMPH # 0.4 (1.2-3.4); LYMPH % 6.1 % (20.0-51.0); MEAN CELL VOLUME 102 fl (80.0-100.0); MEAN CORPUSCULAR HEMOGLOBIN 30 pg (27.0-31.0); MEAN CORPUSCULAR HGB CONC 30 g/dl (33.0-37.0); MONO # 0.5 (0.1-0.6); MONO % 8.7 % (1.7-9.3); PLATELET COUNT 192 K/mm3 (130-400); RED BLOOD COUNT 4.31 M/mm3 (4.10-5.30); REDCELL DISTRIBUTION WIDTH-CV 13.2 % (11.5-14.5)
[2018-12-14 14:47] LABS: ALBUMIN 4.3 gm/dL (3.5-5.0); BILIRUBIN,TOTAL 0.5 mg/dL (0.0-1.0); CALCIUM 8.6 mg/dL (8.4-10.2); CREATININE, serum 1.28 (0.52-1.25); POTASSIUM 3.9 mmol/L (3.4-5.0); PROTHROMBIN TIME 11.6 SECONDS (9.7-12.8); TOTAL PROTEIN 8.1 gm/dL (6.4-8.2)
[2018-12-14 14:49] LABS: PARTIAL THROMBOPLASTIN TIME 29.4 SECONDS (26.0-37.0)
[2018-12-14 14:57] LABS: TROPONIN-I 0.015 ng/mL (0.000-0.035)
[2018-12-14 16:08] LABS: ARTERIAL BLD GAS O2 SATURATION 95.1 % (92-100); ARTERIAL BLD GAS TCO2 CT 59.7; ARTERIAL BLOOD GAS BASE EXCESS 22.3 (-2-2); ARTERIAL BLOOD GAS HCO3 55.8 meq/L (22-26); ARTERIAL BLOOD GAS PO2 85.3 mmHg (80-100); ARTERIAL BLOOD GAS pH 7.26 (7.35-7.45)
[2018-12-14 16:09] LABS: ARTERIAL BLOOD GAS PCO2 126.9 mmHg (35-45)
[2018-12-14 17:37] LABS: ARTERIAL BLD GAS O2 SATURATION 95.7 % (92-100); ARTERIAL BLD GAS TCO2 CT 48.1; ARTERIAL BLOOD GAS BASE EXCESS 13.9 (-2-2); ARTERIAL BLOOD GAS PO2 90.9 mmHg (80-100); ARTERIAL BLOOD GAS pH 7.28 (7.35-7.45)
[2018-12-14 17:38] LABS: ARTERIAL BLOOD GAS PCO2 98.3 mmHg (35-45)
[2018-12-14 22:00] VITALS: BP 110/52
[2018-12-15 00:32] VITALS: PULSE 96
== END 2018-12-15 00:32 | disposition short-term general hospital (02) ==
LOC: COL.ER 14:10
PROVIDERS: Emergency Medicine; Family Medicine
DX: J96.90 Respiratory failure, unspecified, unspecified whether with hypoxia or hypercapnia (principal); I50.9 Heart failure, unspecified
CPT/HCPCS: J1940

== ENCOUNTER → 2018-12-27 | Outpatient (CLI) | payer MEDICARE ==
[~2018-12-27] MED LIST changes: +K-DUR 10 MEQ T10 MEQ PO; +KEPPRA 500MG500 MG PO; +PLETAL50 MG PO; +PREDFORTE5ML OD; +REQUIP 1MG T1 MG/TAB PO; +TAMBOCOR50 MG PO
[2018-12-27 10:15] LABS: ARTERIAL BLD GAS O2 SATURATION 94.5 % (92-100); ARTERIAL BLD GAS TCO2 CT 41.6; ARTERIAL BLOOD GAS BASE EXCESS 11.9 (-2-2); ARTERIAL BLOOD GAS HCO3 39.6 meq/L (22-26); ARTERIAL BLOOD GAS PO2 72.4 mmHg (80-100)
[2018-12-27 10:16] LABS: ARTERIAL BLOOD GAS PCO2 65.3 mmHg (35-45)
== END ==
LOC: COL.PUL 09:56
PROVIDERS: Family Medicine
DX: J44.0 Chronic obstructive pulmonary disease with (acute) lower respiratory infection (principal)

== ENCOUNTER 2018-12-29 14:17 | Inpatient (IN) | payer MEDICARE ==
[~2018-12-29] VITALS: Ht 162.6 cm; Wt 95.8 kg
[2018-12-29] VITALS (192 sets, daily range): BP systolic 88–167; BP diastolic 54–86; PULSE 92–98; TEMP 98.6; O2SAT 85–100
[~2018-12-29 14:17] MED LIST changes: -K-DUR 10 MEQ T10 MEQ PO; -KEPPRA 500MG500 MG PO; -PLETAL50 MG PO; -PREDFORTE5ML OD; -REQUIP 1MG T1 MG/TAB PO; -TAMBOCOR50 MG PO
[2018-12-29 14:42] LABS: BASO % 0.2 % (0.0-2.0); EOS # 0.1 (0.0-0.7); EOS % 1.1 % (0-4.0); GRAN # 8.3 (1.4-6.5); HEMATOCRIT 45.3 % (37.0-47.0); HEMOGLOBIN 14.3 g/dl (12.5-16.0); LYMPH # 0.5 (1.2-3.4); LYMPH % 4.7 % (20.0-51.0); MEAN CELL VOLUME 97 fl (80.0-100.0); MEAN CORPUSCULAR HEMOGLOBIN 31 pg (27.0-31.0); MEAN CORPUSCULAR HGB CONC 32 g/dl (33.0-37.0); MEAN PLATELET VOLUME 10.4 fl (7.4-10.4); MONO # 0.6 (0.1-0.6); MONO % 6.6 % (1.7-9.3); PLATELET COUNT 185 K/mm3 (130-400); RED BLOOD COUNT 4.65 M/mm3 (4.10-5.30); REDCELL DISTRIBUTION WIDTH-CV 12.7 % (11.5-14.5)
[2018-12-29 14:51] LABS: ALANINE AMINOTRANSFERASE 22 U/L (9-52); ALBUMIN 4.1 gm/dL (3.5-5.0); ALKALINE PHOSPHATASE 87 U/L (50-136); AST,SGOT 23 U/L (15-37); BILIRUBIN,TOTAL 0.6 mg/dL (0.0-1.0); BLOOD UREA NITROGEN 33 mg/dL (7-17); CALCIUM 9.1 mg/dL (8.4-10.2); CREATININE, serum 1.05 (0.52-1.25); GLUCOSE 152 mg/dL (74-106); POTASSIUM 3.7 mmol/L (3.4-5.0); SODIUM 147 mmol/L (137-145); TOTAL PROTEIN 7.7 gm/dL (6.4-8.2)
[2018-12-29 15:07] LABS: CHLORIDE 88 mmol/L (98-107)
[2018-12-29 15:08] LABS: CARBON DIOXIDE 46 mmol/L (22-30)
[2018-12-29 15:09] LABS: ANION GAP 13 mmol/L (7-16); CREATINE KINASE < 20 U/L (30-135); INR 1.1 (0.8-3.0); PROTHROMBIN TIME 12.5 SECONDS (9.7-12.8); TROPONIN-I < 0.012 ng/mL (0.000-0.035)
[2018-12-29 15:48] LABS: ARTERIAL BLD GAS O2 SATURATION 98.6 % (92-100); ARTERIAL BLD GAS TCO2 CT 50.3; ARTERIAL BLOOD GAS BASE EXCESS 16.3 (-2-2); ARTERIAL BLOOD GAS HCO3 47.4 meq/L (22-26); ARTERIAL BLOOD GAS pH 7.32 (7.35-7.45)
[2018-12-29 15:50] LABS: ARTERIAL BLOOD GAS PCO2 94.6 mmHg (35-45); ARTERIAL BLOOD GAS PO2 193.6 mmHg (80-100)
--- NOTE | 2018-12-29 19:20 | NUR ---
Bedside report given to AUSTYN Blackmon.
[2018-12-29 19:54] LABS: ARTERIAL BLD GAS O2 SATURATION 98.1 % (92-100); ARTERIAL BLD GAS TCO2 CT 48.8; ARTERIAL BLOOD GAS pH 7.31 (7.35-7.45)
[2018-12-29 19:55] LABS: ARTERIAL BLOOD GAS PO2 139.5 mmHg (80-100)
[2018-12-29] MEDS ORDERED: KEPPRA 500MG500 MG PO (20:49)
[2018-12-29] MEDS ORDERED: PLETAL50 MG PO (20:51)
[2018-12-29] MEDS ORDERED: K-DUR 10 MEQ T10 MEQ PO (20:54)
[2018-12-29] MEDS ORDERED: TAMBOCOR50 MG PO (20:55)
[2018-12-29] MEDS ORDERED: REQUIP 1MG T1 MG/TAB PO (20:55)
[2018-12-30] VITALS (1021 sets, daily range): BP systolic 101–167; BP diastolic 47–86; PULSE 70–98; TEMP 97.4–98.7; O2SAT 74–99
[2018-12-30 00:11] LABS: ARTERIAL BLD GAS O2 SATURATION 98.8 % (92-100); ARTERIAL BLD GAS TCO2 CT 37.6; ARTERIAL BLOOD GAS BASE EXCESS 14.3 (-2-2); ARTERIAL BLOOD GAS HCO3 36.5 meq/L (22-26); ARTERIAL BLOOD GAS PCO2 36.4 mmHg (35-45)
[2018-12-30 00:12] LABS: ARTERIAL BLOOD GAS PO2 253.3 mmHg (80-100); ARTERIAL BLOOD GAS pH 7.62 (7.35-7.45)
--- NOTE | 2018-12-30 02:06 | NUR ---
UNABLE TO COMPLETE THE FULL ADMISSION ASSESSMENT DUE TO RAPID SCHEDULING OF MECHANICAL VENTILATION. DAUGHTER, KHOA WILL BE BACK TOMRROW. DAY SHIFT RN CAN TALK WITH DAUGHTER TO GATHER MRE INFORMATION TO COMPLETE THE INCOMPLETE SECTIONS.
[2018-12-30 03:19] LABS: ARTERIAL BLD GAS O2 SATURATION 92.3 % (92-100); ARTERIAL BLD GAS TCO2 CT 38.2; ARTERIAL BLOOD GAS BASE EXCESS 10.5 (-2-2); ARTERIAL BLOOD GAS HCO3 36.5 meq/L (22-26); ARTERIAL BLOOD GAS PCO2 54.4 mmHg (35-45); ARTERIAL BLOOD GAS PO2 63.1 mmHg (80-100); ARTERIAL BLOOD GAS pH 7.45 (7.35-7.45)
--- NOTE | 2018-12-30 05:05 | NUR ---
INITIATED DRIP PER PHYSICIAN ORDERS.
--- NOTE | 2018-12-30 05:07 | NUR ---
INCREASE DRIP PER PHYSICIAN ORDERS.
--- NOTE | 2018-12-30 05:08 | NUR ---
INCREASED DRIP PER PHYSICIAN ORDERS.
--- NOTE | 2018-12-30 05:09 | NUR ---
INCREASED DRIP PER PHYSICAN ORDERS.
--- NOTE | 2018-12-30 05:10 | NUR ---
INCREASED DRIP PER PHYSICIAN PROTOCOL PARAMETERS.
--- NOTE | 2018-12-30 05:12 | NUR ---
DECREASED DRIP DUE TO DECREASE IN PATIENTS BLOOD PRESSURE.
--- NOTE | 2018-12-30 05:12 | NUR ---
INCREASE DRIP DUE TO AN INCREASE IN AGITATION.
--- NOTE | 2018-12-30 05:14 | NUR ---
INITIATED DRIP PER PHYSICAN PROTOCOL PARAMETERS.
[2018-12-30 05:17] LABS: HEMATOCRIT 39.6 % (37.0-47.0); HEMOGLOBIN 12.2 g/dl (12.5-16.0); MEAN CELL VOLUME 100 fl (80.0-100.0); MEAN CORPUSCULAR HEMOGLOBIN 31 pg (27.0-31.0); MEAN CORPUSCULAR HGB CONC 31 g/dl (33.0-37.0); MEAN PLATELET VOLUME 11.1 fl (7.4-10.4); PLATELET COUNT 150 K/mm3 (130-400); RED BLOOD COUNT 3.96 M/mm3 (4.10-5.30); REDCELL DISTRIBUTION WIDTH-CV 12.4 % (11.5-14.5)
[2018-12-30 05:24] LABS: ALBUMIN 3.6 gm/dL (3.5-5.0); BILIRUBIN,TOTAL 0.7 mg/dL (0.0-1.0); CALCIUM 8.9 mg/dL (8.4-10.2); CREATININE, serum 1.38 (0.52-1.25); MAGNESIUM 1.9 mg/dL (1.6-2.3); PHOSPHOROUS 3.5 mg/dL (2.5-4.5); POTASSIUM 3.6 mmol/L (3.4-5.0); TOTAL PROTEIN 6.4 gm/dL (6.4-8.2)
[2018-12-30 06:03] LABS: BAND 13 % (0-10); HYPOCHROMIA 1+; LYMPHOCYTE 4 % (20.0-51.0); NEUTROPHILS 82 % (42.0-75.2); PLATELET ESTIMATE NORMAL (NORMAL)
--- NOTE | 2018-12-30 06:14 | NUR ---
patient was already beginng to get restless on the amount of medication she was receiving. sedation vacation not appropriate at this time. will try again later this afternoon.
--- NOTE | 2018-12-30 07:12 | NUR ---
gave report to ruby jay.
--- NOTE | 2018-12-30 08:00 | NUR ---
Shift assessment complete at this time. Unable to review plan of care with Pt r/t sedation et intubation. Vitals stable at this time. Pt awakens easily to voice and is able to follow commands. Bed in low position, call light within reach, will continue to monitor.
--- NOTE | 2018-12-30 09:25 | NUR ---
SW attempted to meet with the patient. The pt is intubated, SW will attempt at a later time.
--- NOTE | 2018-12-30 12:00 | NUR ---
Shift reassessment complete at this time. No changes from previous assessment. Pt shows no active signs of pain with a CPOT score of 0. Vitals stable at this time. Daughters at bedside currently. Bed in low position, call light within reach. Will continue to monitor.
--- NOTE | 2018-12-30 16:00 | NUR ---
Shift reassessment complete at this time. No changes from previous assessments noted. Vitals stable at this time. CPOT score is 0, Pt showing no signs of pain. Bed in low position, call light within reach. Will continue to monitor.
--- NOTE | 2018-12-30 16:57 | NUR ---
Sedation vacation performed at 1650. Propofol and Fentanyl gtts both decreased by 50%. at 1657. Pt was noted to be considerably restless in bed. However, Pt was still able to open eyes to voice, make eye contact with this RN, and follow simple commands. Sedation was resumed again at previous rates/dosages. Will continue to monitor. See IV Drip/Titration flowsheets for gtt change documentation.
[2018-12-30 19:14] LABS: ARTERIAL BLD GAS O2 SATURATION 95.1 % (92-100); ARTERIAL BLD GAS TCO2 CT 36.9; ARTERIAL BLOOD GAS BASE EXCESS 10.7 (-2-2); ARTERIAL BLOOD GAS HCO3 35.5 meq/L (22-26); ARTERIAL BLOOD GAS PCO2 47.5 mmHg (35-45); ARTERIAL BLOOD GAS PO2 77.2 mmHg (80-100); ARTERIAL BLOOD GAS pH 7.49 (7.35-7.45)
--- NOTE | 2018-12-30 19:29 | NUR ---
Bedside report given to AUSTYN Lord.
[2018-12-31] VITALS (966 sets, daily range): BP systolic 109–158; BP diastolic 64–104; PULSE 69–99; TEMP 98–99; O2SAT 80–100
[2018-12-31 04:39] LABS: MEAN CELL VOLUME 96 fl (80.0-100.0); MEAN CORPUSCULAR HEMOGLOBIN 31 pg (27.0-31.0); MEAN CORPUSCULAR HGB CONC 32 g/dl (33.0-37.0); MEAN PLATELET VOLUME 10.7 fl (7.4-10.4); PLATELET COUNT 129 K/mm3 (130-400); RED BLOOD COUNT 3.58 M/mm3 (4.10-5.30); REDCELL DISTRIBUTION WIDTH-CV 12.5 % (11.5-14.5)
[2018-12-31 04:41] LABS: HEMATOCRIT 34.4 % (37.0-47.0)
[2018-12-31 04:55] LABS: ALBUMIN 3.1 gm/dL (3.5-5.0); BILIRUBIN,TOTAL 0.4 mg/dL (0.0-1.0); CALCIUM 8.5 mg/dL (8.4-10.2); CREATININE, serum 1.42 (0.52-1.25); MAGNESIUM 1.9 mg/dL (1.6-2.3); PHOSPHOROUS 3.8 mg/dL (2.5-4.5); POTASSIUM 3.8 mmol/L (3.4-5.0); TOTAL PROTEIN 5.7 gm/dL (6.4-8.2)
[2018-12-31 04:56] LABS: ARTERIAL BLD GAS O2 SATURATION 94.4 % (92-100); ARTERIAL BLD GAS TCO2 CT 31.9; ARTERIAL BLOOD GAS BASE EXCESS 5.4 (-2-2); ARTERIAL BLOOD GAS HCO3 30.5 meq/L (22-26); ARTERIAL BLOOD GAS PCO2 46.8 mmHg (35-45); ARTERIAL BLOOD GAS pH 7.43 (7.35-7.45)
[2018-12-31 05:13] LABS: BAND 15 % (0-10); LYMPHOCYTE 2 % (20.0-51.0); NEUTROPHILS 79 % (42.0-75.2)
[2018-12-31 05:14] LABS: HYPOCHROMIA 1+; PLATELET ESTIMATE DECREASED (NORMAL)
--- NOTE | 2018-12-31 06:43 | NUR ---
PER DR. COOPER'S VERBAL ORDER.
--- NOTE | 2018-12-31 06:44 | NUR ---
PER DR. COOPER'S VERBAL ORDER.
--- NOTE | 2018-12-31 07:30 | NUR ---
PT HAVING SELDOM TREMORS AND OFF FENTYNL THIS AM. PT IS RESPONDING TO VERBAL STIMULI, OPENING EYES ON COMMAND, PT ATTEMPTING TO SQUEEZE HANDS AND DOES SO, BUT NOT EQUAL. DAUGHTER IS BEDSIDE.
[2018-12-31 09:03] LABS: ARTERIAL BLD GAS O2 SATURATION 95.3 % (92-100); ARTERIAL BLD GAS TCO2 CT 34.8; ARTERIAL BLOOD GAS BASE EXCESS 8.3 (-2-2); ARTERIAL BLOOD GAS HCO3 33.3 meq/L (22-26); ARTERIAL BLOOD GAS PCO2 48.3 mmHg (35-45); ARTERIAL BLOOD GAS pH 7.46 (7.35-7.45)
--- NOTE | 2018-12-31 09:16 | NUR ---
PT EXTUBATED TO OXYMASK @ 3L. PT ALERT AND ORIENTED, NO DISTRESS NOTED AT THIS TIME.
--- NOTE | 2018-12-31 09:45 | NUR ---
PT EXTUBATED AT 0915. PT ON 3L SIMPLE MASK. PT'S DAUGHTERS ARE BEDSIDE. PT IS ABLE TO FOLLOW COMMANDS. PT IS SLIGHTLY CONFUSED: ABLE TO SAY WHAT STATE SHE IS IN, MONTH OF BIRTHDAY, AND PRESIDENT. PT IS TIRED. WILL CONTINUE TO MONITOR AND ASSESS ORIENTATION. PT DENIES PAIN AT THIS TIME. PT PROVIDED ORAL CARE.
--- NOTE | 2018-12-31 10:39 | NUR ---
PT PLACED ON CPAP TRAIL. 10/[address] COOPER.
--- NOTE | 2018-12-31 12:00 | NUR ---
PT ON BIPAP. PT STILL ONLY PARTIALLY ORIENTED. PT IS ABLE TO RESPOND WITH NODDING THAT SHE IS COMFORTABLE AND NOT IN PAIN. WILL CONTINUE TO MONITOR.
[2018-12-31 14:07] LABS: ARTERIAL BLD GAS O2 SATURATION 98.3 % (92-100); ARTERIAL BLOOD GAS BASE EXCESS 7.5 (-2-2); ARTERIAL BLOOD GAS HCO3 34.2 meq/L (22-26); ARTERIAL BLOOD GAS PCO2 57.8 mmHg (35-45); ARTERIAL BLOOD GAS pH 7.39 (7.35-7.45)
[2018-12-31 14:08] LABS: ARTERIAL BLOOD GAS PO2 146.3 mmHg (80-100)
--- NOTE | 2018-12-31 14:55 | NUR ---
PT TO CT VIA BED AT 1425 ON PORTABLE MONITOR. PT RETURNED TO ICU RM 3 AT 1455.
--- NOTE | 2018-12-31 14:57 | NUR ---
SW talked with patients daughter to discuss discharge plan and specialty hosptial placement. Patients Daughter Sary said when her sister was there at noon talking to their mom she was very confused and disoriented. Sary does not think she will be agreeable to going anywhere once she is oriented but would like a referral sent to [facility] in so if she is agreeable the process is started. Patient did agree to a specialty hosptial during rounding however she was just extubated. Sary reports she cares for her mother in her home and they also have Caregivers come in and provide therapy. Patient uses a trilogy at night and has a walker. Patients PCP is Dr Rosenthal. Daughter reports they do not have a DPOA she knows of. restaurant worker faxed referral to [facility] and spoke with Cl. Will continue to follow.
--- NOTE | 2018-12-31 15:00 | NUR ---
PT CONTINUUES TO BE PARTIALLY ORIENTED. PT KNOW DATE OF AND PRESIDENT, BUT UNABLE TO STATE THE CITY, STATE, MONTH, OR YEAR. PT IS FOLLOWING DIRECTIONS.
[2018-12-31] MEDS ORDERED: PREDFORTE5ML OD (17:47)
--- NOTE | 2018-12-31 20:55 | NUR ---
Patient concerned that daughter had not called her upon arriving home. Called daughter for patient to ensure that she made it home safe. Allowed daughter to say a few words to patient over the phone. Patient thanked nurse after phone call and stated " Now I can sleep"
[2019-01-01] VITALS (348 sets, daily range): BP systolic 120–168; BP diastolic 73–92; PULSE 76–102; TEMP 98–98.8; O2SAT 78–100
--- NOTE | 2019-01-01 03:00 | NUR ---
Requesting a drink of water. Another nursing staff member assisted with offering water. Tolerated well; no concerns at this time.
[2019-01-01 05:07] LABS: ARTERIAL BLD GAS O2 SATURATION 95.4 % (92-100); ARTERIAL BLD GAS TCO2 CT 34.1; ARTERIAL BLOOD GAS BASE EXCESS 7.5 (-2-2); ARTERIAL BLOOD GAS HCO3 32.6 meq/L (22-26); ARTERIAL BLOOD GAS PCO2 48.1 mmHg (35-45); ARTERIAL BLOOD GAS PO2 81.4 mmHg (80-100); ARTERIAL BLOOD GAS pH 7.45 (7.35-7.45)
--- NOTE | 2019-01-01 05:39 | NUR ---
Labs drawn from central line. Sip of water given per patient request. No other concerns at this time.
[2019-01-01 05:42] LABS: HEMOGLOBIN 11.3 g/dl (12.5-16.0); MEAN CELL VOLUME 97 fl (80.0-100.0); MEAN CORPUSCULAR HEMOGLOBIN 30 pg (27.0-31.0); MEAN CORPUSCULAR HGB CONC 31 g/dl (33.0-37.0); MEAN PLATELET VOLUME 10.8 fl (7.4-10.4); PLATELET COUNT 131 K/mm3 (130-400); RED BLOOD COUNT 3.73 M/mm3 (4.10-5.30); REDCELL DISTRIBUTION WIDTH-CV 12.9 % (11.5-14.5)
[2019-01-01 05:52] LABS: ALBUMIN 3.4 gm/dL (3.5-5.0); BILIRUBIN,TOTAL 0.5 mg/dL (0.0-1.0); CALCIUM 8.6 mg/dL (8.4-10.2); CREATININE, serum 1.1 (0.52-1.25); MAGNESIUM 2.1 mg/dL (1.6-2.3); PHOSPHOROUS 3.1 mg/dL (2.5-4.5); POTASSIUM 4.1 mmol/L (3.4-5.0); TOTAL PROTEIN 6.2 gm/dL (6.4-8.2)
[2019-01-01 06:08] LABS: HEMATOCRIT 36.3 % (37.0-47.0)
[2019-01-01 07:24] LABS: BAND 3 % (0-10); LYMPHOCYTE 2 % (20.0-51.0); NEUTROPHILS 90 % (42.0-75.2); PLATELET ESTIMATE NORMAL (NORMAL)
--- NOTE | 2019-01-01 08:00 | NUR ---
Pt is awake, sitting up in bed, A&O x4. Pt denies pain this weight.
--- NOTE | 2019-01-01 10:19 | NUR ---
Initial visit; Patient thanked Inseminator for looking in on her and offering spiritual care.
--- NOTE | 2019-01-01 12:00 | NUR ---
Pt is A&O x4, but intermittently has confusion during conversation. Pt denies pain and continues to turn self in bed.
--- NOTE | 2019-01-01 14:15 | NUR ---
Per providers instructions, pt's vogt catheter was removed. All water, 9cc's total, was pulled from baloon prior to removal. Pt tolerated removal well.
--- NOTE | 2019-01-01 14:51 | NUR ---
Pt on Bipap. Case management and palliative care are present in pts room discussing advanced directives, [facility], and palliative care.
--- NOTE | 2019-01-01 15:26 | NUR ---
Therapy notes requested by insurance and [facility]. LATOYA faxed PT notes, no ot.
--- NOTE | 2019-01-01 15:38 | NUR ---
Talked with pt at bedside with Danika Canales RN, case management. She had just gone on her Bipap so speaking was more difficult but we were able to talk about some basic questions, goals and the importance of involving her family in desicussion of her wishes. Currently she does not have any advanced directives in place although reports that her daughter Sary Arteaga would be her decision maker. her daughter and grandson live with her. She does recognize that her medical condition is very life limiting. It bothers her not to be able to move around freely. She states she would like to talk more with her daughter about advanced directives, goals of care, and what she would want. Would prefer to be at home but knows that this may not always be possible. Currently reports she will be compliant with her trilogy although her history does not support this. Her daughter is very firm that she needs to go to [facility] to get stronger. I will meet with her daughter and Margarita tomorrow at 3pm for further discussion.
--- NOTE | 2019-01-01 16:15 | NUR ---
Pt A&Ox4, but continues to have bouts of confusion. Tonight she was looking for her "daughters phone". Pt was expalined the room phone was not her daughters phone and pt was asked if she would like us to call her daughter for her, pt declined. Pt does at times correct herself.
--- NOTE | 2019-01-01 20:30 | NUR ---
Assessment complete; patient tolerating BIPAP well. Assisted onto bedpan per patient request. No concerns at this time. Will continue to monitor.
[2019-01-02] VITALS: BP 141/72; PULSE 78; TEMP 98.5
--- NOTE | 2019-01-02 00:30 | NUR ---
Patient resting in bed with eyes shut; no concerns at this time.
[2019-01-02 04:00] VITALS: BP 146/78; PULSE 76; TEMP 97.7
--- NOTE | 2019-01-02 04:46 | NUR ---
Bloody drainage noted around Left IJ tegaderm. Sterile dressing change performed. Assisted patient to reposition and straighten bedding out. No other concerns at this time.
[2019-01-02 05:58] LABS: EOS % 0.4 % (0-4.0); GRAN # 4.3 (1.4-6.5); GRAN % 76.9 % (42.2-75.2); HEMOGLOBIN 10.7 g/dl (12.5-16.0); LYMPH # 0.7 (1.2-3.4); LYMPH % 12.5 % (20.0-51.0); MEAN CELL VOLUME 98 fl (80.0-100.0); MEAN CORPUSCULAR HEMOGLOBIN 31 pg (27.0-31.0); MEAN CORPUSCULAR HGB CONC 31 g/dl (33.0-37.0); MEAN PLATELET VOLUME 10.8 fl (7.4-10.4); MONO # 0.5 (0.1-0.6); MONO % 9.5 % (1.7-9.3); PLATELET COUNT 109 K/mm3 (130-400)
[2019-01-02 06:06] LABS: HEMATOCRIT 34.4 % (37.0-47.0)
[2019-01-02 07:29] LABS: BILIRUBIN,TOTAL 0.3 mg/dL (0.0-1.0); CALCIUM 8.5 mg/dL (8.4-10.2); CREATININE, serum 0.96 (0.52-1.25); POTASSIUM 3.6 mmol/L (3.4-5.0); TOTAL PROTEIN 5.5 gm/dL (6.4-8.2)
[2019-01-02 08:00] VITALS: BP 163/91; PULSE 73; TEMP 98.4
[2019-01-02 12:00] VITALS: BP 153/88; PULSE 83; TEMP 98.6
--- NOTE | 2019-01-02 13:47 | NUR ---
Met with pt again briefly in ICU. She is still hoping to go to the [facility] but waiting on insurance preapproval. She reports that she and her daughter did talk about doing an advanced directive but hasn't done yet. Still not open to discussing her goals of care other than distribution of her house funds and general money. Agrees that it is important for her to make decisions and talk with family but really hasn't done and will see how this conversation goes later today.
--- NOTE | 2019-01-02 14:02 | NUR ---
[facility] is waiting on insurance verification for transfer.
--- NOTE | 2019-01-02 15:00 | NUR ---
Dressing changed to Right IJ - sterile technique.
--- NOTE | 2019-01-02 15:14 | NUR ---
Follow-up visit; Patient visited with Territory Sales Manager though appeared somewhat confused and anxious. Territory Sales Manager alerted Nurse so that she could assure patient that all the tubes attached to her body were indeed still attached, which was causing Margarita some concern.
--- NOTE | 2019-01-02 15:36 | NUR ---
Family meeting with Margarita and her two daughters at bedside. Reviewed plan still for transfer to [facility] once insurance authorization has been recieved. Provided DPOA-HC paperwork for the girls and their mother to review and hopefully complete today. Reviewed that this is for decision making authority when their mother would be unable to make her own decisions. I again discussed her code status and at this point the patient still wishes to be a full code--even knowing her health situation would make the likelihood of a successful outcome very small. We are still waiting to hear from [facility] as of this time.
--- NOTE | 2019-01-02 15:59 | NUR ---
[facility] did not get insurance auth today so patient is transfering up to the floor. TREVIN met with patient and completed a DPOA-HC where she listed her daughters Sary and Daniela. Copy placed on the chart and original and 4 copies provided to patient. TREVIN called trevin Ruiz on medical, and informed her of discharge plan for tomorrow.
[2019-01-02 16:00] VITALS: BP 162/91; PULSE 94; TEMP 98.4
--- NOTE | 2019-01-02 16:33 | NUR ---
PT TO MEDICAL FLOOR ROOM 310 VIA WC. PT TRANSFERRED TO BED WITH GAIT BELT. REPORT CALLED TO AUSTYN CHO AT 1600.
[2019-01-02] MEDS ORDERED: PROVENTIL0.09 MG/A1 IH (16:51)
--- NOTE | 2019-01-02 17:00 | NUR ---
Pt arrived to floor at this time via w/c with ICU staff and 2 daughters. Able to transfer to bed easily with just SBA. OM at 3L to maintain saturations. Reviewed home meds. Pt denies needs. will continue to monitor.
--- NOTE | 2019-01-02 18:32 | NUR ---
Pt doing well. Resting in bed on 3L NC. Denies needs. RT will assist with setting up trilogy tonight. will give bedside shift report to canvas marker who will resume care.
[2019-01-02 18:44] LABS: HEMATOCRIT 37.7 % (37.0-47.0); HEMOGLOBIN 11.5 g/dl (12.5-16.0)
[2019-01-02 20:15] VITALS: BP 137/68; PULSE 110; TEMP 97.8
[2019-01-03 00:07] VITALS: BP 137/55; PULSE 81; TEMP 97.5
[2019-01-03 04:43] VITALS: BP 139/79; PULSE 98; TEMP 97.8
--- NOTE | 2019-01-03 07:20 | NUR ---
END OF SHIFT REPORT GIVEN TO AUSTYN CORDOBA.
[2019-01-03 07:28] VITALS: BP 136/103; PULSE 84; TEMP 98.4
[2019-01-03 07:31] VITALS: BP 164/82
--- NOTE | 2019-01-03 07:35 | NUR ---
PT HAS HAD AN UNEVENTFUL SHIFT. NO C/O PAIN THIS SHIFT. RIGHT IJ WITH 3 LUMENS ALL FLUSH WITHOUT DIFFICULTY. SMALL AMOUNT DRAINAGE UNDER DRESSING TO SITE. NO INCREASE IN DRAINAGE THIS SHIFT. HAS BEEN ABLE TO STAND AND PIVOT TO BSC. O2 AT 3L/NC. SMALL AREAS OF BRUISING TO ABDOMEN. WILL CONTINUE TO MONITOR. CALL LIGHT IN REACH.
--- NOTE | 2019-01-03 10:18 | NUR ---
Pt is patiently waiting to hear if her insurance company has approved her transfer to [facility]. She reports otherwise is feeling better and reports she did use her trilogy last night without problem.
--- NOTE | 2019-01-03 10:57 | NUR ---
Patient's insurance denied the prior auth for [facility]. SW spoke with Dr Osullivan and he agreed to complete a peer to peer.
[2019-01-03 12:00] VITALS: BP 105/46; PULSE 83; TEMP 98
--- NOTE | 2019-01-03 14:00 | NUR ---
Several IV attempts by different nurses for peripheral IV access without success. Previous IV to right forearm that was started by AUSTYN Rocha was accidentally pulled out by the pt.
--- NOTE | 2019-01-03 15:19 | NUR ---
LATOYA received a call from Diana at [facility] who said the peer to peer was completed and both docs agreed a SNF that will accept trilogy is appropriate. LATOYA called Diana back and left vm about getting a list in network that will take trilogy from them. LATOYA called patients daughter Sary who said they would be ok with any of the cities around but would prefer as their brother lives there. They would also be ok with [place], [place], and [place]. SW to continue to follow.
--- NOTE | 2019-01-03 16:35 | NUR ---
Triple lumen IV catheter removed from right IJ site using sterile technique: 3 sutures removed without difficulty. Pressure held to site for 10 minutes and dressing placed with gauze and tegaderm. Pt's family at bedside, preparing belongings for transfer.
--- NOTE | 2019-01-03 17:00 | NUR ---
Pt transferred to [facility]. Belongings with pt. Pt's daughter accepts pt's medication from pharmacy.
--- NOTE | 2019-01-03 17:45 | NUR ---
Call attempted for report, no answer.
== END 2019-01-03 17:15 | DRG 208 ==
LOC: COL.ER 14:17 → ICU 16:47 → COL.ER 16:47 → EDBEDREQ 17:22 → ICU 23:09 → MEDICAL 01-02 16:42
PROVIDERS: Emergency Medicine; Family Medicine; Internal Medicine Pulmonary Disease; Nurse Practitioner Family; ADMIT Family Medicine
PROC: 0BH18EZ Insertion of Endotracheal Airway into Trachea, Via Natural or Artificial Opening Endoscopic (ICD-10-PCS; principal; 2018-12-29)
PROC: 5A1945Z Respiratory Ventilation, 24-96 Consecutive Hours (ICD-10-PCS; 2018-12-29)
PROC: 05HM33Z Insertion of Infusion Device into Right Internal Jugular Vein, Percutaneous Approach (ICD-10-PCS; 2018-12-29)
PROC: 5A09357 Assistance with Respiratory Ventilation, Less than 24 Consecutive Hours, Continuous Positive Airway Pressure (ICD-10-PCS; 2018-12-29)
DX: J96.22 Acute and chronic respiratory failure with hypercapnia (principal); N17.9 Acute kidney failure, unspecified; E87.0 Hyperosmolality and hypernatremia; E87.3 Alkalosis; J96.21 Acute and chronic respiratory failure with hypoxia; E78.5 Hyperlipidemia, unspecified; I11.0 Hypertensive heart disease with heart failure; I48.2 Chronic atrial fibrillation; I50.9 Heart failure, unspecified; G25.81 Restless legs syndrome; G40.909 Epilepsy, unspecified, not intractable, without status epilepticus; I08.1 Rheumatic disorders of both mitral and tricuspid valves; H54.40 Blindness, one eye, unspecified eye; E66.9 Obesity, unspecified; E87.6 Hypokalemia; I27.20 Pulmonary hypertension, unspecified; J44.9 Chronic obstructive pulmonary disease, unspecified; Z99.81 Dependence on supplemental oxygen; Z79.01 Long term (current) use of anticoagulants; Z91.19 Patient's noncompliance with other medical treatment and regimen; Z87.891 Personal history of nicotine dependence; Z79.51 Long term (current) use of inhaled steroids; Z94.7 Corneal transplant status
CPT/HCPCS: 99231-AI; 99233-AI; 99239; A4216; J0692; J1650; J1940; J1953; J2704; J2920; J2930; J3010; J3370; J3480; J7030; J7040; J7050; J7512; Q9967